=== PATIENT | male | born 1955 | race Caucasian/White ===

== ENCOUNTER 2020-03-05 10:23 | Outpatient (CLI) | payer BC, SELFPAY ==
--- NOTE | ~2020-03-05 | XR_ITS ---
XR chest 2V 03/05/2020 10:45 Indication: Dyspnea Procedure: PA and lateral views of the chest Comparison: Comparison to multiple prior studies sequentially, with oldest reviewed study dated 03/13. Findings: Heart size normal. No focal air space disease, pulmonary edema, pleural effusion or suspect ed pneumothorax. No acute osseous abnormality. Impression: 1: No acute cardiopulmonary disease. Reviewed, dictated and finalized at location A. F COMPRESSOR STATION ENGINEER Impression: 1: No acute cardiopulmonary disease.
--- NOTE | 2020-03-05 10:25 | ECG_ITS ---
Measurements Intervals [place] Rate: 59 P: 15 TX: 174 QRS: -7 QRSD: 114 T: 12 QT: 413 QTc: 410 Interpretive Statements SINUS BRADYCARDIA POSSIBLE LEFT VENTRICULAR HYPERTROPHY MINIMAL Q WAVES- HIGH LATERAL LEADS BASELINE ARTIFACT- I, II, III, AVR, AVL, AVF BORDERLINE ECG Electronically Signed On 03-05-2020 10:46:32 ENGINEERING LECTURER by Adam Villalobos D.O.
== END 2020-03-05 10:24 | disposition home or self-care (01) ==
LOC: ANHSURGERY 10:25
PROVIDERS: PCP Family Medicine Adolescent Medicine; Visit Provider Orthopaedic Surgery
DX: Z01.818 Encounter for other preprocedural examination (principal); S83.209A Unspecified tear of unspecified meniscus, current injury, unspecified knee, initial encounter; I48.91 Unspecified atrial fibrillation
CPT/HCPCS: 71046; 93005

== ENCOUNTER 2020-03-09 01:48 | Outpatient (CLI) | payer BC, SELFPAY ==
[2020-03-09 18:31] LABS: SARS-CoV-2 RNA PCR Negative
== END 2020-03-09 01:49 | disposition home or self-care (01) ==
LOC: ANHCOVIDDT 01:48
PROVIDERS: PCP Family Medicine Adolescent Medicine; Visit Provider Orthopaedic Surgery
DX: Z01.812 Encounter for preprocedural laboratory examination (principal); Z20.828 Contact with and (suspected) exposure to other viral communicable diseases
CPT/HCPCS: 87635; C9803; U0003

== ENCOUNTER 2020-03-13 01:46 | Day surgery (SDC) | payer BC, SELFPAY ==
[2020-02-28 14:13] VITALS: BMI 29.1
--- NOTE | 2020-03-11 13:57 | PM.IMHP ---
H&P: HPI History of Present Illness Date/Time: 03/11/20 13:57 <SAKINA Sharma - Last Filed: 03/11/20 14:05> Chief complaint: Right Knee Medial Meniscus Tear <SAKINA Sharma - Last Filed: 03/11/20 14:05> Narrative: Mitchel De Jr. is a 64 year old male Patient of Dr. Forrest who presents today for arthroscopy his right knee with partial medial meniscectomy. He injured his knee in October of this year when he slipped getting out of his boat. He twisted his foot as well as his knee. He started having pain medial aspect the knee at that time. Dealt with it for about 6 weeks until his symptoms became worse. He was initially seen in the office on 11/22/2019. After initial evaluation he was sent for an MRI scan the knee. MRI scan did show significant chondromalacia medial facet the patella. And moderate chondromalacia in medial femoral condyle. It also showed a complex tear of the medial meniscus with evidence of a flap component. He was initially treated with cortisone injection on 12/05 which did not give him much relief. He is unable take anti-inflammatories because he is on Xarelto long-term for his AFib. Patient has not improved with the symptoms in the medial aspect of his knee. His MRI scan does show a flap tear of the medial meniscus. Surgical option of arthroscopy was discussed with him. He would like proceed. <SAKINA Sharma - Last Filed: 03/11/20 14:05> Review of Systems Review of Systems: All systems reviewed & are unremarkable except as noted in HPI and below <SAKINA Sharma - Last Filed: 03/11/20 14:05> [facility] Past Medical History Medical History: Medical History (Updated 03/13/20 @ 06:39 by Jose Carlos Kan MD) Chronic a-fib Hyperlipidemia Obesity <SAKINA Sharma - Last Filed: 03/11/20 14:05> Social History Social History: Social History Smoking status: Never smoker Drinks per week: 3 Substance use: never Substance use type: does not use Living arrangements: with family Spiritual care concerns: No <SAKINA Sharma - Last Filed: 03/11/20 14:05> Meds Home Medications and Allergies Home medications: Home Medications Medication Instructions Recorded Confirmed Type atorvastatin 40 mg PO HS 02/28/20 03/13/20 History flecainide 100 mg PO BID 02/28/20 03/13/20 History rivaroxaban [Xarelto] 20 mg PO HS 02/28/20 03/13/20 History <SAKINA Sharma - Last Filed: 03/11/20 14:05> Allergies/Adverse reactions: Allergies Allergy/AdvReac Type Severity Reaction Status Date / Time No Known Allergies Allergy Unverified 03/13/20 06:47 <SAKINA Sharma Last Filed: 03/11/20 14:05> Exam Narrative: Exam Narrative: 64-year-old male alert pleasant no distress. He is 5 ft 7 197 lb. He walks without a limp. Range motion of the right knee is from 0-135 degrees. He has medial joint line soreness at full flexion. He has moderately severe posterior medial joint line tenderness. Normal varus valgus stability. Hip range of motion is full without discomfort. [id number] posterior medial joint line tenderness. Mild effusion. Normal quad strength. 2+ dorsalis pedis. Skin is all normal. Moderately severe pain with patellofemoral grind. <SAKINA Sharma - Last Filed: 03/11/20 14:05> Resp: Auscultation: clear to auscultation bilaterally <SAKINA Sharma - Last Filed: 03/11/20 14:05> Cardio: Rate: regular rate <SAKINA Sharma - Last Filed: 03/11/20 14:05> Rhythm: abnormal rhythm <SAKINA Sharma Last Filed: 03/11/20 14:05> Assessment and Plan Additional Plan Patient has a medial meniscus tear with a flap component. He continues have symptoms in the knee for the last 4 months. Is not improved nonsurgical treatment. Arthroscopic partial medial meniscectomy was discussed with the patient and he feels that he is having significant symptoms and wo
[2020-03-13] VITALS (7 sets, daily range): BP systolic 121–134; BP diastolic 73–98; PULSE 47–73; RESP 12–20; TEMP 35.8–36.5; O2SAT 97–100
[2020-03-13] MEDS: LACTATED RINGERS 1,000 ML 30 ML IV CONT ×2 (06:28→08:42)
[2020-03-13] MEDS: KETOROLAC 15 MG/ML VIAL (*BKC) IV PUSH (06:37)
[2020-03-13] MEDS: ACETAMINOPHEN 500 MG TABLET 1000 MG PO (06:37)
--- NOTE | 2020-03-13 06:38 | WPDANESEPPF ---
Anes - Initial Pre Proc Eval Procedure: Operation Date: 03/13/20 07:30 Proposed Procedures p Right Knee Arthroscopy, Partial Medial Meniscectomy, Proceed As Indicated - Atul Campos MD Date/Time: 03/13/20 06:38 Surgeon: Atul Campos MD Pre Op Diagnosis: Right Knee Medial Meniscus Tear Patient Data Age: 64 Gender: M Height: 5 ft 8 in Weight: 87 kg Allergies Allergy/AdvReac Type Severity Reaction Status Date / Time No Known Allergies Allergy Unverified 03/13/20 06:19 Home Medications Medication Instructions Recorded Confirmed Type atorvastatin 40 mg PO HS 02/28/20 03/13/20 History flecainide 100 mg PO BID 02/28/20 03/13/20 History rivaroxaban [Xarelto] 20 mg PO HS 02/28/20 03/13/20 History Patient hx anesthesia problems: none Family hx anesthesia problems: none PMFSH Past Medical History Medical History (Updated 03/13/20 @ 06:39 by Jose Carlos Kan MD) Chronic a-fib Hyperlipidemia Obesity Social History Social History Smoking status: Never smoker Drinks per week: 3 Substance use: never Substance use type: does not use Living arrangements: with family Spiritual care concerns: No Anes - Eval Final PreProcedure Day of Procedure 03/13/20 06:38 Patient weight: obese Heart: regular rate and rhythm Lungs: clear to auscultation Airway: Mallampati scale class II Neurological: alert and oriented Last oral intake: >/= 8 hours ASA classification: III Emergent: no Anesthetic plan: proceed Anesthesia type and monitoring: general LMA and standard monitoring Informed Consent: The patient's anesthetic plan and its attendant risks and benefits were discussed with the patient/family/POA. Questions were solicited and answers provided to the satisfaction of the patient/family/POA.
--- NOTE | 2020-03-13 07:22 | WPDHPUPDATE1 ---
History and Physical Update Update Date/Time: 03/13/20 07:22 History and Physical has been reviewed, including an updated exam of the patient. There are NO changes in the patient's condition. Risks, benefits, and alternatives have been discussed and questions answered. Patient agrees to proceed with procedure.
[2020-03-13] MEDS: ceFAZolin 2 GM/D5W 50 ML 2 GM/50 ML BAG IVPB (07:31)
[2020-03-13] MEDS: LIDO 1%/EPINEPHRINE 1:100,000 20 ML VIAL INFILTRATE (08:20)
--- NOTE | 2020-03-13 08:40 | P.OP_ITS ---
Procedure Note - Detailed Date of procedure: 03/13/20 Pre-op diagnosis: Right Knee Medial Meniscus Tear Degenerative medial meniscus tear right knee Procedure performed: Arthroscopic partial medial meniscectomy right knee Description of procedure: Patient brought to the operating room and general anesthesia was administered. He received 2 g of Ancef preoperatively the right knee prepped draped usual fashion. Standard arthroscopic portals were placed. The medial compartment showed moderate thickness cartilage loss involving the lateral 1/2 of the medial femoral condyle weight-bearing portion. There was a radial tear of the posterior horn of medial meniscus immediately visible fairly close to the root and there was a flap component on probing based at the junction of posterior horn and midbody. Chondrocalcinosis crystals were seen the meniscus tissue. Using alternating punch and motorized shaver the flap of medial meniscus was removed leaving a rim of posterior horn rim intact. This left a relative prominence at the posterior aspect the midbody and we introduced the arthroscope in the anterior medial portal and with the shaver in the anterolateral portal, the midbody was transitioned appropriately. The meniscus was then probed and there was an intact remaining superior leaflet running to the radial component at the root. ACL looked normal. Lateral compartment showed fraying of the inner margin of the lateral meniscus which was minimally debrided mainly for visualization inspection and the meniscus was otherwise intact and lateral compartment articular cartilage was intact. There were specks of presumed chondrocalcinosis crystals covering the lateral meniscus as well and the patellofemoral joint showed moderate chondromalacia central trochlear groove and areas of full-thickness cartilage loss on the patella with areas of cartilage remaining on the patella. This completed the procedure. The arthroscope go portals were closed with 5 0 nylon suture in a soft bulky dressing applied the patient transferred postop recovery room stable condition. Anesthesia: GLMA Surgeon: Atul Campos MD Client Relations Representative: ck Estimated blood loss (mL): 1 Drains: No Packing: No Pathology: none sent Complications: No immediate complications Condition: stable Disposition: PACU Findings: Patient was in sinus rhythm during the operation.
--- NOTE | 2020-04-09 13:43 | PM.PROC ---
Procedure Note - Detailed Date of procedure: 03/13/20 Pre-op diagnosis: Right Knee Medial Meniscus Tear Post-op diagnosis: same Surgeon: Atul Campos MD
== END 2020-03-13 10:23 | disposition home or self-care (01) ==
PROVIDERS: PCP Family Medicine Adolescent Medicine; Visit Provider Orthopaedic Surgery
PROC: (CPT 29870; principal; 2020-03-13 07:30)
DX: S83.231A Complex tear of medial meniscus, current injury, right knee, initial encounter (principal); X50.0XXA Overexertion from strenuous movement or load, initial encounter; M11.261 Other chondrocalcinosis, right knee; M94.261 Chondromalacia, right knee; I48.20 Chronic atrial fibrillation, unspecified; E78.5 Hyperlipidemia, unspecified; Z79.01 Long term (current) use of anticoagulants; E66.9 Obesity, unspecified; Z68.29 Body mass index [BMI] 29.0-29.9, adult
CPT/HCPCS: 29881; A9270; J0690; J1100; J1885; J2250; J2405; J2704; J3010; J7120

== ENCOUNTER 2021-07-02 08:24 | Outpatient (CLI) | payer BC, SELFPAY | END 2021-07-02 08:25 | disposition home or self-care (01) | LOC: ANHSURGERY 08:27 | PROVIDERS: PCP Family Medicine Adolescent Medicine; Visit Provider Surgery | DX: Z01.812 Encounter for preprocedural laboratory examination (principal); K42.9 Umbilical hernia without obstruction or gangrene | CPT/HCPCS: 36415; 86850; 86900; 86901 ==

== ENCOUNTER 2021-07-08 00:21 | Day surgery (SDC) | payer BC, SELFPAY ==
[2021-06-30 09:54] VITALS: BMI 29.9
--- NOTE | 2021-06-30 10:06 | PC.NURSE ---
Report to the Outpatient Waiting Room, entrance under the green pavilion located off [facility], at time 7:00 on date 07/08/21. OR Time: 9:00. - You and your visitor will be asked a series of questions to screen for COVID 19 for your protection. - A mask is required within the hospital. One visitor will be allowed to accompany the patient into the hospital. Patients visitor will be instructed to remain with patient at all times or leave the building. We will allow the visitor to come back to the postoperative area when patient is ready. Preoperative COVID Testing Requirements: No COVID Test needed if: (proof is required; if not received patient will have Rapid Test prior to entry) - Patient has received COVID Vaccine at least 14 days prior to procedure date or - Patient has positive COVID test result within last 90 days of surgery date. COVID Test needed if above criteria is not met Patients may have clear liquids (water, carbonated beverages, clear teas, apple juice) until 3 hours prior to surgery (6:00) with a maximum of 20 ounces. - No food from midnight until time of surgery Take the following medications with a SIP of water the morning of surgery: FLECAINIDE Medications to discontinue per physician: VITAMINS/SUPPLEMENTS, XARELTO Date to take last dose: 07/04/21 Please no make-up, nail vietnamese, hairspray, perfume, deodorant, or body powder the day of surgery. No jewelry (including any body piercings) or valuables the day of surgery, leave them at home. Please take a shower or bath the night before, or the morning of, surgery with an antibacterial soap. Wear comfortable, loose fitting clothing. HIBICLENS SHOWER - Jewelry must be removed prior to entering the operating room. Rings and piercings that are not removed may be cut off. - The hospital will not accept responsibility for valuables. - Please leave all valuables, including medications, at home the day of surgery. If you are going home after surgery, a licensed driver guard must drive you home. - NO public transportation without another adult. - We recommend that an adult stay with you for 24 hours following discharge. - We also recommend that you do not drive, make important decision, drink alcoholic beverages, or take any drugs that were not prescribed by your health care provider for at least 24 hours after your discharge time. Follow any additional instructions given to you from your surgeon. Telephone instructions given to FELIX REAL and asked if any additional questions and then verbalized understanding. Patient advised to call surgeon office or pre surgery nurse liaison [phone] if any additional questions.
--- NOTE | 2021-07-07 15:21 | P.PNAN_ITS ---
Anes - Initial Pre Proc Eval Procedure: Operation Date: 07/08/21 09:00 Proposed Procedures p Laparoscopic Umbilical Hernia Repair with Mesh, Davinci Assisted - Savage Austin DO Date/Time: 07/07/21 15:21 Surgeon: Savage Austin DO Pre Op Diagnosis: umbilical hernia Patient Data Age: 66 Gender: M Height: 1.73 m Weight: 89.36 kg Allergies Allergy/AdvReac Type Severity Reaction Status Date / Time No Known Allergies Allergy Verified 07/08/21 07:43 Home Medications Medication Instructions Recorded Confirmed Type Xarelto 20 mg PO HS 02/28/20 07/08/21 History atorvastatin 40 mg PO HS 02/28/20 07/08/21 History flecainide 100 mg PO BID 02/28/20 07/08/21 History multivitamin with minerals [Men's 1 tablet PO DAILY 06/30/21 07/08/21 History One Daily] Patient hx anesthesia problems: none Family hx anesthesia problems: none Results Review: All pre-operative results and documents have been reviewed as part of the pre-operative evaluation. [facility] Past Medical History Medical History (Updated 07/07/21 @ 15:22 by Cuba Braun MD) BMI 32.0-32.9,adult Chronic a-fib Chronic atrial fibrillation Hyperlipidemia Obesity Surgical History Surgical History H/O Achilles tendon repair right Achilles tendon repair History of arthroscopic knee surgery right 03/31 Dr. Campos History of shoulder surgery 2009, Right rotator cuff & acromioplasty History of total knee arthroplasty left 2012 Normal colonoscopy 11/25 Repeat 12/05 Family History Family History Mother , age 58 Liver cancer Father Hypertension Social History Social History Smoking status: Never smoker Second hand tobacco smoke exposure: No Alcohol intake: current Drinks per week: 10 Substance use: never Substance use type: does not use Living arrangements: with family Gender identity (if verbalized by the patient): Male Sexual Orientation (if Verbalized by the Patient): Straight or Heterosexual Spiritual care concerns: No Agree to blood products: Yes Anes - Eval Final PreProcedure Day of Procedure 07/07/21 15:21 Patient weight: obese Heart: regular rate and rhythm Lungs: clear to auscultation and normal air movement Airway: Mallampati scale class II Neurological: alert and oriented Last oral intake: >/= 8 hours ASA classification: III Emergent: no Anesthetic plan: proceed Anesthesia type and monitoring: general ETT Results Review: All pre-operative results and documents have been reviewed as part of the pre-operative evaluation. Informed Consent: The patient's anesthetic plan and its attendant risks and benefits were discussed with the patient/family/POA. Questions were solicited and answers provided to the satisfaction of the patient/family/POA.
[2021-07-08] VITALS (8 sets, daily range): BP systolic 126–146; BP diastolic 65–85; PULSE 56–76; RESP 8–18; TEMP 36.4–36.5; O2SAT 93–97
[2021-07-08] MEDS: ACETAMINOPHEN 500 MG TABLET 1000 MG PO (07:47)
[2021-07-08] MEDS: LACTATED RINGERS 1,000 ML 30 ML IV CONT (08:00)
[2021-07-08] MEDS: KETOROLAC 15 MG/ML VIAL (*BKC) IV PUSH (08:01)
--- NOTE | 2021-07-08 09:28 | WPDHPUPDATE1 ---
History and Physical Update Update Date/Time: 07/08/21 09:28 History and Physical has been reviewed, including an updated exam of the patient. There are NO changes in the patient's condition. Risks, benefits, and alternatives have been discussed and questions answered. Patient agrees to proceed with procedure.
--- NOTE | 2021-07-08 09:28 | PM.IMHP ---
H&P: HPI History of Present Illness Date/Time: 07/08/21 09:28 Chief Complaint: Umbilical hernia Narrative: This is a 66-year-old man who presents for umbilical hernia repair. He denies any changes since last seen in the office. Review of Systems Review of Systems: All systems reviewed & are unremarkable except as noted in HPI and below Constitutional: Constitutional: Denies chills, Denies fever(s), Denies headache(s) and Denies weight loss Eyes: Eyes: Denies change in vision ENT: Denies dizziness, Denies headache(s), Denies neck mass and Denies throat swelling Cardiovascular: Cardiovascular: Denies chest pain, Denies lightheadedness and Denies dyspnea Respiratory: Respiratory: Denies cough, Denies dyspnea and Denies wheezing Gastrointestinal: Gastrointestinal: Denies abdominal pain, Denies change in bowel habits, Denies nausea and Denies vomiting Genitourinary: Genitourinary: Denies hematuria and Denies dysuria Musculoskeletal: Musculoskeletal: Reports as per HPI Integumentary/Breasts: Skin/Breast: Reports as per HPI Neurologic: Denies dizziness and Denies headache(s) Allergic/Immunologic: Allergic/Immunologic: Denies throat swelling and Denies wheezing PMFSH Past Medical History Medical History (Updated 07/07/21 @ 15:22 by Cuba Braun MD) BMI 32.0-32.9,adult Chronic a-fib Chronic atrial fibrillation Hyperlipidemia Obesity Surgical History Surgical History H/O Achilles tendon repair right Achilles tendon repair History of arthroscopic knee surgery right 03/31 Dr. Campos History of shoulder surgery 2009, Right rotator cuff & acromioplasty History of total knee arthroplasty left 2012 Normal colonoscopy 11/25 Repeat 12/05 Family History Family History Mother , age 58 Liver cancer Father Hypertension Social History Social History Smoking status: Never smoker Second hand tobacco smoke exposure: No Alcohol intake: current Drinks per week: 10 Substance use: never Substance use type: does not use Living arrangements: with family Gender identity (if verbalized by the patient): Male Sexual Orientation (if Verbalized by the Patient): Straight or Heterosexual Spiritual care concerns: No Agree to blood products: Yes Meds Home Medications and Allergies Home Medications Medication Instructions Recorded Confirmed Type Xarelto 20 mg PO HS 02/28/20 07/08/21 History atorvastatin 40 mg PO HS 02/28/20 07/08/21 History flecainide 100 mg PO BID 02/28/20 07/08/21 History multivitamin with minerals [Men's 1 tablet PO DAILY 06/30/21 07/08/21 History One Daily] Allergies Allergy/AdvReac Type Severity Reaction Status Date / Time No Known Allergies Allergy Verified 07/08/21 07:43 Vital Signs Vital Signs - 24 hr 07/08/21 07:30 Temperature 36.5 C Pulse Rate 76 Respiratory Rate 16 Blood Pressure 136/85 Pulse Oximetry 95 Exam Const: General: no acute distress and alert Orientation/consciousness: patient oriented x3 HENMT: Head: normocephalic and atraumatic Ears: hearing grossly normal bilaterally General nose exam: Normal nares present Mouth: Yes Normal oral and palatal mucosa present Eyes: Periorbital: periorbital findings normal Sclera: sclerae normal EOM: EOMs intact bilaterally Neck: Neck: normal visual inspection, no lymphadenopathy and trachea midline Chest: Chest palpation & inspection: normal inspection of the chest Resp: Effort & Inspection: normal respiratory effort Auscultation: clear to auscultation bilaterally Cardio: Jugular venous distension: no JVD Rate: regular rate Rhythm: regular rhythm Heart sounds: S1 normal heart sound present and S2 normal heart sound present Peripheral pulses: Peripheral pulses 2+ throughout GI: Inspection: norm
[2021-07-08] MEDS: ceFAZolin 2 GM/D5W 50 ML 2 GM/50 ML BAG IVPB (10:00)
--- NOTE | 2021-07-08 12:00 | W.PM.PROC2 ---
Procedure Note - Detailed Date of Procedure 07/08/21 Pre-op Diagnosis umbilical hernia Post-op Diagnosis Same Procedure Performed Laparoscopic Umbilical Hernia Repair with Mesh, da Jenna assisted Surgeon Savage Austin, Anesthesia General and Local (Exparel) Indications This is a 66-year-old man who noticed an umbilical bulge that has increased over the past year. This does cause some discomfort but he has no other complaints. He was found to have an umbilical hernia on physical exam. Discussions were made with the patient about treatment options and decision was made to proceed with robotic assisted laparoscopic umbilical hernia repair with mesh. Findings Laparoscopic umbilical hernia repair was performed. The patient was found to have a 2 cm umbilical hernia containing preperitoneal fat. A robotic transabdominal preperitoneal (rTAPP) approach was utilized. Once a wide enough preperitoneal pocket was created the fascia was closed using 0 Stratafix running suture. The Ventralight ST 15 cm x 10 cm mesh was then placed within the preperitoneal pocket and secured at the 4 corners using 3-0 Vicryl simple interrupted sutures. The peritoneal flap was then closed using 3 0 V lock running absorbable suture. No Specimens were sent for pathology. Description of Procedure Procedure as well as risks, benefits, and alternatives were discussed with the patient. Written consent was obtained and placed in chart prior to procedure. Patient was brought back to surgical suite. He was placed supine on operating table. Time-out was done to confirm patient and procedure. He was then intubated by the anesthesia department. A bump was placed under his left hip, and the bed was flexed slightly to extend the space between his costal margin and iliac crest. His abdomen was prepped and draped in sterile fashion using chlorhexidine prep. A 5 millimeter incision was made in the left upper quadrant, and a 5 millimeter Optiview trocar was advanced through the abdominal layers under direct visualization. Once inside the abdominal cavity, carbon dioxide insufflation was used to create a pneumoperitoneum. His abdomen was inspected. An 8 millimeter incision was made in the left lower quadrant, and an 8 millimeter robotic trocar was placed under direct visualization. Another 8 millimeter incision was made in the left lateral abdomen, and an 8 millimeter robotic trocar was placed under direct visualization. Exparel was infiltrated along the lateral abdominal cohen to perform a transversus abdominis plane block bilaterally. The 5 millimeter port was removed, the incision was extended to 12 millimeters, and a 12 millimeter air seal port was placed under direct visualization. A Venu-Johns cone was also used to place an 0-Vicryl simple interrupted suture at this trocar site. The robotic arms were brought up to the patient's bedside and secured to the ports. The camera and instruments were inserted, and I then moved over to the robotic console and took control of the camera and instruments. After careful thorough inspection of the abdominal cavity, I began my dissection at the hernia. A preperitoneal pocket was started along the left lateral abdomen using scissors with electrocautery. Preperitoneal plane was dissected from the left lateral side medially to the midline and then this was continued to the right lateral side. The hernia sac was reduced along with the preperitoneal fat contained within the hernia defect. I then measured the hernia size. The hernia measured 2 cm. The fascia was closed using an 0-Stratafix running suture in a vertical fashion. A 15 cm x [address] mesh was then placed within the preperitoneal pocket. This was oriented vertically with the mesh centered on the hernia defect. The mesh was then secured to the abdominal wall using 3-0 Vicryl simple interrupted sutures. The repair was inspected, and one final inspection was made around the ab
[2021-07-08] MEDS: oxyCODONE HCL (*CRX) 5 MG TAB IR PO (13:06)
== END 2021-07-08 13:50 | disposition home or self-care (01) ==
PROVIDERS: PCP Family Medicine Adolescent Medicine; Visit Provider Surgery
PROC: (CPT 49652; principal; 2021-07-08 09:00)
DX: K42.9 Umbilical hernia without obstruction or gangrene (principal); I48.91 Unspecified atrial fibrillation; R00.1 Bradycardia, unspecified; E78.5 Hyperlipidemia, unspecified; Z79.01 Long term (current) use of anticoagulants; E66.9 Obesity, unspecified; Z68.30 Body mass index [BMI] 30.0-30.9, adult
CPT/HCPCS: 49652; S2900; 36415; 86850; 86900; 86901; A9270; C1781; C9290; J0690; J1100; J1885; J2405; J2704; J2710; J3010; J7120

== ENCOUNTER 2021-11-15 23:27 | Emergency (ER) | payer BC, SELFPAY ==
--- NOTE | ~2021-11-15 | CT_ITS ---
EXAMINATION: CT brain wo con DATE: 11/16/2021 00:45 INDICATION: Headache. Patient on blood thinner. Dizziness for one week. Left arm numbness. TECHNIQUE: Computed tomography (CT) of the head was performed without intravenous contrast. The mA wa s adjusted according to patient size. Iterative reconstruction technique was employed. Exam dose: 68 1.00 mGy-cm total exam DLP. COMPARISON: 06/19/2005 CT brain FINDINGS: No intracranial mass lesion or hemorrhage or cerebrovascular accident. No midline shift or mass effect effect. Normal ventricular size. No subdural or epidural hematoma. Bilateral carotid siphon internal carotid artery calcifications. No fracture or bone destruction of the cranial vault. Mildly comparison thickening is noted in the posterior left maxillary sinus. Included paranasal sinus es and mastoid air cells are otherwise unremarkable. IMPRESSION: Cerebral atherosclerosis No acute intracranial finding or skull fracture Reviewed, dictated and finalized at [facility]. Reviewed, dictated and finalized at location A.
--- NOTE | 2021-11-15 23:32 | ECG_ITS ---
Measurements Intervals [place] Rate: 52 P: 60 UT: 205 QRS: -8 QRSD: 119 T: 14 QT: 457 QTc: 428 Interpretive Statements SINUS BRADYCARDIA POSSIBLE LEFT VENTRICULAR HYPERTROPHY [VOLTAGE CRITERIA PLUS LAE OR QRS WIDENING] COMPARED TO ECG 03/05/2020 11:00:06 NO SIGNIFICANT CHANGES Electronically Signed On 11-16-2021 8:24:34 CDT by Kentrell Banks M.D.
[2021-11-15 23:35] VITALS: BP 154/87; PULSE 61; RESP 16; TEMP 36.3; O2SAT 100
[2021-11-16] VITALS (19 sets, daily range): BP systolic 141–162; BP diastolic 95–100; PULSE 54–64; RESP 12–17; TEMP 36.7; O2SAT 94–98
--- NOTE | 2021-11-16 00:31 | ED.GENADULT ---
HPI - General Adult General Chief complaint: Dizziness Stated complaint: dizzy spells, headache Time Seen by Provider: 11/16/21 00:10 History of Present Illness HPI narrative: This is a 66-year-old male with a history of AFib on Xarelto presenting to the ED with intermittent dizziness x1 and half weeks. Patient says he is having episodic periods of vertigo that are triggered by head movements. They completely resolve in between episodes. The episodes are vertiginous and are associated with some nausea but no vomiting. The patient denies diplopia, dysarthria, dysphagia, dystaxia. in the triage note it was noted that he was having tingling in his left hand although his although this has been going on for years and is not associated with his new vertigo. The patient is also complaining of intermittent headaches that have been going on for several weeks. They have responded to Tylenol. The patient denies any recent falls or head trauma. Related Data Home Medications Medication Instructions Recorded Confirmed atorvastatin 40 mg tablet 40 mg PO HS 02/28/20 08/22/21 flecainide 100 mg tablet 100 mg PO BID 02/28/20 08/22/21 rivaroxaban 20 mg tablet (Xarelto) 20 mg PO HS 02/28/20 08/22/21 multivitamin with minerals (Men's 1 tablet PO DAILY 06/30/21 08/22/21 One Daily tablet) Allergies Allergy/AdvReac Type Severity Reaction Status Date / Time No Known Allergies Allergy Verified 08/21/21 13:10 Review of Systems Review of Systems: CONSTITUTIONAL: Denies night sweats. EYES: No eye pain ENT: Denies rhinorrhea CARDIOVASCULAR: Denies palpitations RESPIRATORY: Denies hemoptysis GASTROINTESTINAL: Denies hematemesis GENITOURINARY: Denies hematuria. SKIN: Denies rash MUSCULOSKELETAL: Denies myalgia. NEUROLOGIC: Denies weakness. PSYCHIATRIC: Denies delusions PMF Past Medical History Medical History BMI 32.0-32.9,adult Chronic a-fib Chronic atrial fibrillation Hyperlipidemia Obesity Surgical History Surgical History H/O Achilles tendon repair right Achilles tendon repair History of arthroscopic knee surgery right 03/31 Dr. Campos History of shoulder surgery 2009, Right rotator cuff & acromioplasty History of total knee arthroplasty left 2012 History of umbilical hernia repair w mesh davinci assisted 07/08/21 Normal colonoscopy 11/25 Repeat 12/05 Family History Family History Mother , age 58 Liver cancer Father Hypertension Social History Social History Smoking status: Never smoker Second hand tobacco smoke exposure: No Alcohol intake: current Drinks per week: 10 Substance use: never Substance use type: does not use Gender identity (if verbalized by the patient): Male Sexual Orientation (if Verbalized by the Patient): Straight or Heterosexual Spiritual care concerns: No Agree to blood products: Yes Exam Narrative: APPEARANCE: No apparent distress. Head atraumatic. EYES: PERRLA/EOMI, NOSE: Normal no drainage NECK: Supple, Trachea midline RESPIRATORY: CTAB, No increased work of breathing. CARDIOVASCULAR: S1S2 appreciated ABDOMINAL: Soft, nontender, nondistended, MUSCULOSKELETAl: No obvious deformities NEURO: Alert. Cranial nerves 2-12 grossly intact. Sensation light touch, motor function cerebellar function intact for 4 extremities. Gait exam was normal. [place] hallpike did not elicit nystagmus on the downward motion and did elicit vertigo on the upward motion. Patient has no nystagmus at rest. Test of skew is negative. Head impulse was indeterminate. SKIN:: Warm, dry. Normal color PSYCHIATRIC: Normal affect Course Vital Signs Vital signs: Vital Signs Temperature 97.4 F L 11/15/21 23:35 Pulse Rate 61 11/15/21 23:35 Respirator
[2021-11-16] MEDS: MECLIZINE HCL 25 MG TABLET PO (00:52)
== END 2021-11-16 03:27 | disposition home or self-care (01) ==
PROVIDERS: Emergency Provider Emergency Medicine; PCP Family Medicine Adolescent Medicine
DX: R42 Dizziness and giddiness (principal); I48.20 Chronic atrial fibrillation, unspecified; E78.5 Hyperlipidemia, unspecified; E66.9 Obesity, unspecified; Z68.29 Body mass index [BMI] 29.0-29.9, adult; Z79.01 Long term (current) use of anticoagulants; Z96.652 Presence of left artificial knee joint
CPT/HCPCS: 70450; 93005; 99284; A9270

== ENCOUNTER → 2022-06-16 14:10 | Outpatient (CLI) | payer MEDICARE, SELFPAY ==
--- NOTE | ~2022-06-16 | XR_ITS ---
XR chest 2V DATE: 06/16/2022 14:20 INDICATION: Chronic atrial fibrillation. Right scapular and thoracic spine pain TECHNIQUE: 2 views COMPARISON: 03/05/2020 PA and lateral chest FINDINGS: Normal heart size. Is aortic unfolding. No hilar or mediastinal enlargement. No pulmonary infiltrate or consolidation, pleural effusion or pulmonary vascular congestion or pneumo thorax. Degenerative spurring of the thoracic spine. IMPRESSION: No active cardiopulmonary disease or significant change since 03/05/2020 Reviewed, dictated and finalized at location L. LPHURIZER OPERATOR
== END ==
PROVIDERS: PCP Family Medicine Adolescent Medicine; Visit Provider Family Medicine Adolescent Medicine
DX: I48.20 Chronic atrial fibrillation, unspecified (principal); M54.6 Pain in thoracic spine; M25.511 Pain in right shoulder
CPT/HCPCS: 71046

== ENCOUNTER → 2023-06-07 13:17 | Outpatient (CLI) | payer MEDICARE, SELFPAY ==
--- NOTE | ~2023-06-07 | XR_ITS ---
EXAMINATION: XR chest 2V Exam Date/Time: 06/07/2023 13:28 PROMOTIONS DIRECTOR HISTORY: persistent cough Comparison: 06/16/2022; CT thorax 11/23/2005. RESULT: Lines, tubes, and devices: None. Lungs and pleura: Clear. Cardiomediastinal silhouette: Stable. Other: No acute osseous or upper abdominal finding. IMPRESSION: No acute cardiopulmonary process. Reviewed, dictated and finalized at location K. OTIONS DIRECTOR
== END ==
PROVIDERS: PCP Family Medicine Adolescent Medicine; Visit Provider Family Medicine Adolescent Medicine
DX: R05.9 Cough, unspecified (principal)
CPT/HCPCS: 71046

== ENCOUNTER 2023-11-02 01:36 | Day surgery (SDC) | payer MEDICARE, SELFPAY ==
[2023-10-20 11:27] VITALS: BMI 30.2
--- NOTE | 2023-10-25 09:41 | SUR.PREOP ---
Clearance to stop xarelto refaxed to Dr. Reyes's office.
--- NOTE | 2023-10-25 13:00 | SUR.PREOP ---
Spoke with patient regarding medication Xarelto. Pt. verbalizes understanding that the last dose of Xarelto is to be taken on 10/30/23 and the Endoscopist will instruct them when to restart after the procedure.
[2023-11-02 11:00] VITALS: BP 135/86; PULSE 62; RESP 18; TEMP 36.2; O2SAT 100; BMI 28.9
[2023-11-02] MEDS: LACTATED RINGERS 1,000 ML 150 ML IV CONT (11:26)
--- NOTE | 2023-11-02 11:58 | WPDANESEPPF ---
Anes - Initial Pre Proc Eval Procedure: Operation Date: 11/02/23 12:30 Proposed Procedures p Colonoscopy - Cabrera Prince MD s [facility] Hemorrhoid Treatment - Cabrera Prince MD Date/Time: 11/02/23 11:58 Surgeon: Cabrera Prince MD Pre Op Diagnosis: fecal smearing, full incontinence of feces, hemorr Patient Data Age: 68 Gender: M Height: 1.73 m Weight: 86.4 kg Last Vital Signs Temp 36.2 C L 11/02/23 11:00 Pulse 62 11/02/23 11:00 Resp 18 11/02/23 11:00 BP 135/86 11/02/23 11:00 Pulse Ox 100 11/02/23 11:00 O2 Del Method Room Air 11/02/23 11:00 Allergies Allergy/AdvReac Type Severity Reaction Status Date / Time No Known Allergies Allergy Verified 11/02/23 11:12 Home Medications Medication Instructions Recorded Confirmed Type atorvastatin 40 mg tablet 40 mg PO HS 02/28/20 11/02/23 History flecainide 100 mg tablet 100 mg PO BID 02/28/20 11/02/23 History rivaroxaban 20 mg tablet (Xarelto) 20 mg PO HS 02/28/20 11/02/23 History multivitamin with minerals (Men's 1 tablet PO DAILY 06/30/21 11/02/23 History One Daily tablet) acetaminophen 325 mg capsule 325 mg PO Q6H PRN Pain 06/16/22 11/02/23 History (Tylenol) Patient hx anesthesia problems: none Family hx anesthesia problems: none Results Review: All pre-operative results and documents have been reviewed as part of the pre-operative evaluation. [facility] Past Medical History Medical History (Updated 11/02/23 @ 11:58 by Cher Polanco CRNA) Chronic a-fib Hyperlipidemia Obesity Pulmonary regurgitation Umbilical hernia Surgical History Surgical History H/O Achilles tendon repair right Achilles tendon repair History of arthroscopic knee surgery right 03/31 Dr. Campos Left 2011 History of shoulder surgery (2009) 2010, Right rotator cuff & acromioplasty History of total knee arthroplasty (2012) left 2013 History of umbilical hernia repair w mesh davinci assisted 07/08/21 Family History Family History Mother , age 58 Liver cancer Father Hypertension Social History Social History Smoking status: Never smoker Second hand tobacco smoke exposure: No Alcohol intake: current Drinks per week: 12 Substance use: never Substance use type: does not use Living arrangements: with family Occupation/Education: retired Gender identity (if verbalized by the patient): Male Sexual Orientation (if Verbalized by the Patient): Straight or Heterosexual Spiritual care concerns: No Agree to blood products: Yes Anes - Eval Final PreProcedure Day of Procedure 11/02/23 11:58 Patient weight: overweight Heart: regular rate and rhythm Lungs: clear to auscultation Neurological: alert and oriented Last oral intake: >/= 8 hours ASA classification: III Emergent: no Anesthetic plan: proceed Anesthesia type and monitoring: general and standard monitoring Results Review: All pre-operative results and documents have been reviewed as part of the pre-operative evaluation. Informed Consent: The patient's anesthetic plan and its attendant risks and benefits were discussed with the patient/family/POA. Questions were solicited and answers provided to the satisfaction of the patient/family/POA.
--- NOTE | 2023-11-02 12:25 | PM.HPGS ---
History of Present Illness History of Present Illness Consent: Risks, benefits, and alternatives have been discussed and questions answered. Patient agrees to proceed with procedure. Chief complaint: fecal smearing, full incontinence of feces, hemorr Narrative: Mitchel De Jr. is a 68 year old male with intermittent incontinence and blood in stools, last colonoscopy 2019 Review of Systems Review of Systems: All systems reviewed & are unremarkable except as noted in HPI and below PMFSH Past Medical History Medical History (Updated 11/02/23 @ 11:58 by Cher Polanco CRNA) Chronic a-fib Hyperlipidemia Obesity Pulmonary regurgitation Umbilical hernia Surgical History Surgical History H/O Achilles tendon repair right Achilles tendon repair History of arthroscopic knee surgery right 03/31 Dr. Campos Left 2011 History of shoulder surgery (2009) 2009, Right rotator cuff & acromioplasty History of total knee arthroplasty (2013) left 2013 History of umbilical hernia repair w mesh davinci assisted 07/08/21 Family History Family History Mother , age 58 Liver cancer Father Hypertension Social History Social History Smoking status: Never smoker Second hand tobacco smoke exposure: No Alcohol intake: current Drinks per week: 12 Substance use: never Substance use type: does not use Living arrangements: with family Occupation/Education: retired Gender identity (if verbalized by the patient): Male Sexual Orientation (if Verbalized by the Patient): Straight or Heterosexual Spiritual care concerns: No Agree to blood products: Yes Meds Home Medications and Allergies Home Medications Medication Instructions Recorded Confirmed Type atorvastatin 40 mg tablet 40 mg PO HS 02/28/20 11/02/23 History flecainide 100 mg tablet 100 mg PO BID 02/28/20 11/02/23 History rivaroxaban 20 mg tablet (Xarelto) 20 mg PO HS 02/28/20 11/02/23 History multivitamin with minerals (Men's 1 tablet PO DAILY 06/30/21 11/02/23 History One Daily tablet) acetaminophen 325 mg capsule 325 mg PO Q6H PRN Pain 06/16/22 11/02/23 History (Tylenol) Allergies Allergy/AdvReac Type Severity Reaction Status Date / Time No Known Allergies Allergy Verified 11/02/23 11:12 Vital Signs Vital Signs - 24 hr 11/02/23 11:00 Temperature 97.2 F L Pulse Rate 62 Respiratory Rate 18 Blood Pressure 135/86 Pulse Oximetry 100 Oxygen Delivery Room Air Exam Const: General: comfortable and no acute distress HENMT: Face/Nose/Sinus: Normal nares present Eyes: General: appearance normal, both eyes and all related structures Neck: Neck: no JVD Resp: Auscultation: clear to auscultation bilaterally Cardio: Rate: regular rate Rhythm: regular rhythm GI: Inspection: non-distended GI Palp: Yes Soft to palpation Skin: General skin exam: normal color Neuro: General: gait normal Speech: normal speech Extrem: General: normal to inspection Psych: Mental Status: mental status grossly normal Assessment and Plan Assessment and plan (1) Bright red blood per rectum: Code(s): K62.5 - Hemorrhage of anus and rectum Status: Acute Assessment and Plan: colonoscopy if we find internal hemorrhoid then will treat with irc (2) Fecal smearing: Code(s): R15.1 - Fecal smearing Status: Acute
[2023-11-02 12:40] VITALS: BP 119/80; PULSE 64; RESP 21; O2SAT 93
--- NOTE | 2023-11-02 12:43 | W.PM.PROC2 ---
Procedure Note - Detailed Date of Procedure 11/02/23 Pre-op Diagnosis hemorrhois Post-op Diagnosis Same Procedure Performed IRC of internal hemorrhoids Surgeon Cabrera Prince MD Anesthesia MAC (also had colonoscopy) Findings small size internal hemorrhoids Description of Procedure using anoscope noted small size internal hemorrhoids, no bleeding, no fissure. Then advanced IRC probe and hemorrhoids treated for 1.5sec x6
[2023-11-02 12:50] VITALS: BP 123/79; PULSE 60; RESP 19; O2SAT 95
[2023-11-02 13:00] VITALS: BP 135/97; PULSE 60; RESP 20; O2SAT 100
== END 2023-11-02 13:14 | disposition home or self-care (01) ==
PROVIDERS: PCP Family Medicine Adolescent Medicine; Referring Provider Nurse Practitioner; Visit Provider Internal Medicine Gastroenterology
PROC: 0DJD8ZZ Inspection of Lower Intestinal Tract, Via Natural or Artificial Opening Endoscopic (ICD-10-PCS; CPT 45378; principal; 2023-11-02 12:30)
PROC: (CPT 46930; 2023-11-02 12:30)
DX: K57.30 Diverticulosis of large intestine without perforation or abscess without bleeding (principal); K64.8 Other hemorrhoids; I48.20 Chronic atrial fibrillation, unspecified; E78.5 Hyperlipidemia, unspecified
CPT/HCPCS: 45380; 46930; 88305; J2704; J7120

== ENCOUNTER 2024-12-26 08:00 | Outpatient (CLI) | payer MEDICARE, SELFPAY ==
--- OUTSIDE RECORDS SUMMARY | 2014-02-28 03:45 | XMS_ITS | Continuity of Care Document ---
Author Organization [facility] Address [address] [place] [id number] Phone Care Team Providers Care Long Lines Operator Name Role Phone Marley Hernandez DO Unavailable Unavailable Allergies, Adverse Reactions, Alerts Substance Reaction Status Criticality No Known Drug Allergies Active No I nformation Medications Medication Instructions Dosage Effective Dates (start - stop) Status Comments Langley 5 mg-325 mg tablet take 1 - 2 Tablet by oral route at bedtime as needed for pain - No Longer Active Procedures Procedure Date Supplemental Report Office/outpatient visit,felicity [facility] 2013 X-ray exam shoulder minimum 2 views Office/outpatient visit,misael w[facility] 2013 Advance Directives Directive Yes / No Effective Date File Name No Information Encounters Encounter Description Practice Location Reason(s) For Visit Diagnoses Date Provider Providers Copied on Encounter Office/outpat ient visit,felicity [facility], [address] [place] [address], [id number], tel:[phone] Are You a Human Shoulder painSprain of unspecified site of shoulder and upper armImpingement syndrome 4 David Roach. [address] [place] [address], [place], [place], [id number] , [place]. tel: [phone] [place] [facility], [address] [place] [address], [id number], tel:[phone] [facility] Shoulder painImpingement syndromeSprain of unspecified site of shoulder and upper arm 4 David Roach. [address] [facility], [address], [place], [place], [id number] , [place]. tel: [phone] Family History Family Member Type Diagnosis Age At Onset Father Problem (finding) No history of Stroke Payers Payer name Insurance type Covered alliance party ID Luz Maria leon(s) [employer] [id number] Social History Type Description Quantity Date Captured Comments Alcohol Use Details Unknown Caffeine Use Details Unknown Tobacco Use Status No Information Smoking Status No Information Sex Male Vital Signs Date / Time: Height Weight BMI Pulse Rate Blood Pressure Temperature Respiratory Rate Body Surface Area Head Circumference Head Circ. Percentile Wt./Gildardo. Percentile BMI percentile Pulse Ox Inhaled Ox 8:47 AM 68 /min 142/90 mm[Hg] 16 /min Chief Complaint And Reason For Visit No Information Reason For Referral Reason For Referral No Information Plan Of Treatment Date Type Action Status Referral Ordered: MRI Upper extr joint, w/o contrast RT shoulder Appointment date/timeframe: 02/28/2014 ordered Referral Ordered: X-ray exam shoulder minimum 2 views RT ordered History Of Present Illness Encounter Date Complaint History Of Prese nt Illness No Information Functional Status Date Functional Assessmen t No Information Instructions Date Instruction Additional Infor mation No Information Assessments Type Assessment Date assessment Shoulder pain assessment Sprain of unspecified site of sh oulder and upper arm assessment Impingement syndrome Patient Care Teams Name Effective Dates (start - stop) Status Members No Information
--- NOTE | ~2024-12-26 | US_ITS ---
Examination: US abdomen complete Clinical History: R10.9 - Unspecified abdominal pain . Comparison: None Technique: Complete abdominal sonography Findings: Liver: Normal size. Normal echotexture. No intrahepatic biliary ductal dilatation. Normal hepatopedal flow main portal vein. Common duct: Normal caliber, 4 mm. Gallbladder: No stones. No wall thickening. No pericholecystic fluid. Spleen: Unremarkable. Pancreas: Largely obscured by bowel gas. Kidneys: Hydronephrosis left kidney. 2.2 cm simple cyst left kidney. Small exophytic cyst right kidney. Urinary bladder: No abnormality identified. Left ureteral jet not seen. Aorta: No aneurysmal dilatation. Retrohepatic IVC: Unremarkable. IMPRESSION: 1. Hydronephrosis left kidney. Reviewed, dictated and finalized at location R.
--- OUTSIDE RECORDS SUMMARY | 2024-12-26 08:47 | XMS_ITS | Encounter Summary ---
Author Organization [facility] Address [address] [address] Care Team Providers Care Double Reamer Operator Name Role Phone Josse Fields MD Primary Care Prov ider Josse Fields MD Primary Care Prov ider Encounter Details Date Type Department Care Team (Late st Contact Info) Description 05/15/2016 Orders Only [facility] ProviderMelina MD [address] [place] [id number] Social History Tobacco Use Types Packs/Day Years Used Date Smoking Tobacco: Never Alcohol Use Standard Drinks/Week Comments Yes 0 (1 standard drink = 0.6 oz pur e alcohol) Sex and Gender Information Value Date Recorded Sex Assigned at Not on file Legal Sex Male 1:58 AM EMERGENCY MANAGER Gender Identity Not on file Sexual Orientation Not on file documented as of this encounter Plan of Treatment Not on file documented as of this encounter Procedures Procedure Name Priority Date/Time Associated Diagnosis Comments CARDIOLOGY REPORT 05/15/2016 documented in this encounter Results * CARDIOLOGY REPORT (05/15/2016) Anatomical Region Laterality Modality Other Narrative 05/15/2016 Ordered by an unspecified provider. Historical Provider [facility] CINDY SAUCEDA Final Result documented in this encounter Visit Diagnoses Not on filedocumented in this encounter Care Teams Double Reamer Operator Relationship Specialty Start Date End Date Josse Fields MD PCP - General 07/10/16 Josse Fields MD PCP - General 03/24/13 07/09/16 documented as of this encounter
--- OUTSIDE RECORDS SUMMARY | 2024-12-26 08:47 | XMS_ITS | Clinical Summary ---
Author Organization [facility] [address] [facility] Address [address] [place] [address] Care Team Providers Care Commercial Service Technician Name Role Phone Josse Fields MD Primary Care Prov ider Allergies No known active allergies Medications multivitamin tabletIndicatio ns:Vitamin Deficiency Prevention Take 1 tablet by mouth Active rivaroxaban (Xarelto) 20 mg tablet TAKE 1 TABLET BY MOUTH EVERY DAY 30 tablet 11 5 Active atorvastatin (LIPITOR) 40 mg tablet TAKE 1 TABLET(40 MG) BY MOUTH DAILY 90 tablet 3 5 Active flecainide (TAMBOCOR) 100 mg tablet TAKE 1 TABLET(100 MG) BY MOUTH EVERY 12 HOURS 180 tablet 3 5 Active flecainide (TAMBOCOR) 100 mg tablet TAKE 1 TABLET(100 MG) BY MOUTH EVERY 12 HOURS 180 tablet 3 4 12/23/19 25 Discontinued Active Problems Problem Noted Date Diagnosed Date Coronary artery disease invo lving [place] coronary artery of [place] heart without angina pectoris 10/05/2024 Recurrent chest pain 03/28/2024 Flushing 02/03/2023 Encounter for monitoring flecainide therapy 12/12 Dizziness 06/23/2019 Sinus bradycardia 12/23/2018 Chest tightness 05/20/2018 Right carotid 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 0 05/15/2016 Overview (07/16/2016): Chronic anticoagulation Paroxysmal atrial fibrillation 05/15/2016 Overview (07/17/2016): Paroxysmal atrial fibrillation Hyperlipidemia LDL goal <70 05/15/2016 Overview (07/17/2016): Hyperlipidemia LDL goal <100 Encounters Date Type Department Care Team Description 10/05/2024 8:30 AM CDT Office Visit [facility] Cardiology [address] [place] [address] Zack Reyes MD Hyperlipidemia LDL goal <70 (Primary Dx); Paroxysmal atrial fibrillation (HCC); Encounter for monitoring flecainide therapy; Sinus bradycardia; prison current use of anticoagulant therapy; Coronary artery disease involving [place] coronary artery of [place] heart without angina pectoris from Last 3 Months Surgical History Surgery Date Site/Laterality Comments ROTATOR CUFF REPAIR R Rotator cuff repair OTHER SURGICAL HISTORY Left arthroscopic knee surgery OTHER SURGICAL HISTORY Right Achilles tendon rupture repair Medical History Medical History Date Comments Atrial fibrillation (HCC) Atrial fibrillation Hx Other Medical Dyslipidemia Family History Medical History Relation Name Comments Heart attack Mother's Brother 2 Myocardia l Infarction; Cause of : Myocardial Infarction Relation Name Status Comments Mother's Brother 1 Mother's Brother 2 Social History Tobacco Use Types Packs/Day Years Used Date Smoking Tobacco: Never Smokeless Tobacco: Never Tobacco Cessation:Counseling Given: Not Answered Alcohol Use Standard Drinks/Week Comments Yes 12 (1 standard drink = 0.6 oz pu re alcohol) Sex and Gender Information Value Date Recorded Sex Assigned at Not on file Legal Sex Male 1:58 AM NEUROSCIENCE SPECIALIST Gender Identity Not on file Sexual Orientation Not on file Obstetrics History Last Filed Vital Signs Vital Sign Reading Time Taken Comments Blood Pressure 132/70 10/05/2024 8:18 AM CDT Pulse 58 10/05/2024 8:18 AM CDT Temperature - - Respiratory Rate 10 04/27/2024 1:10 PM NEUROSCIENCE SPECIALIST Oxygen Saturation 96% 10/05/2024 8:18 AM CDT Inhaled Oxygen Concentration - - Weight 90.3 kg (199 lb) 10/05/2024 8:18 AM CDT Height 172.7 cm (5' 8) 10/05/2024 8:18 AM CDT Body Mass Index 30.26 10/05/2024 8:18 AM CDT Plan of Treatment Health Maintenance Due Date Last Done Comments Colon Cancer Screening-Colonoscopy 1957 Depression Screening 1957 Fall Risk Assessment 1957 Hepatitis C Screening 1957 Prostate Cancer Screening-PSA 1957 DTaP/Tdap/Td Vaccine (1 - Tdap) 1968 Hepatitis B Screening 07/02/1975 Pneumococcal vaccine 65+ (1 of 1 - PCV) 07/02/2007 Zoster Vaccine (1 of 2) 07/02/2007 Well Visit 65+ 2022 Influenza Vaccine (#1) 2024 Procedures Procedure Name Priority Date/Time Associated Diagnosis Comments POCT LIPID PANEL Routine 10/05/2024 8:20 AM CDT Hyperlipidemia LDL goal <70 from Last 3 Months Results * (ABNORMAL) POCT lipid panel (10/05/2024 8:20 AM CDT) Cholesterol, POC 160 <200 MG/DL HDL, POC 51 >=40 mg/dL Triglycerides, POC 223(A) <=149 mg/dL LDL Cholesterol POC 65 <=129 mg/dL Chol/HDL Ratio, POC 1.3 NONE Non-HDL Cholesterol, POC 109 NONE mg/dL Cholesterol Total, POC 160 30 - 199 mg/dL Capillary blood 10/05/2024 8 :20 AM CDT Zack Reyes MD POINT OF CARE TEST ORDERA BLES Final Result from Last 3 Months Insurance [employer] [facility] MEDICARE ADVANTAGE [facility] MEDICARE Address: [place] [id number] [facility] MEDICARE Address: [place] [address] [facility] MEDICARE Address: [place] [id number] Care Teams Commercial Service Technician Relationship Specialty Start Date End Date Josse Fields MD [facility] - General 07/10/16
== END 2024-12-26 08:01 | disposition home or self-care (01) ==
PROVIDERS: PCP Family Medicine Adolescent Medicine; Visit Provider Nurse Practitioner
DX: R10.9 Unspecified abdominal pain (principal)
CPT/HCPCS: 76700

== ENCOUNTER 2025-01-05 10:08 | Outpatient (CLI) | payer MEDICARE, SELFPAY ==
--- NOTE | ~2025-01-05 | CT_ITS ---
EXAMINATION: CT abdomen pelvis wo/w con DATE: 01/05/2025 11:11 INDICATION: Unspecified hydronephrosis. TECHNIQUE: Computed tomography (CT) of the abdomen and pelvis was performed without and with intravenous contrast using a total of 130 mL Omnipaque-350 intravenous contrast with a double-bolus technique for simultaneous opacification of the renal parenchyma and renal collecting system. Automated exposure control and iterative reconstruction technique were employed. The dose- length product was 1891.86 mGy-cm. COMPARISON: CT abdomen and pelvis 02/16/2011, ultrasound abdomen 12/26/2024 FINDINGS: The visualized portions of the lung bases demonstrate mild atelectasis. No pleural effusion. The heart size is normal. No pericardial effusion. The liver, spleen, gallbladder, pancreas, and adrenal glands are normal. There is a 9 mm cyst in right kidney. There is a 5 mm stone in right kidney. The right ureter is well opacified and is normal. There is a 7.5 x 6.3 cm enhancing mass in left kidney. There is severe left hydronephrosis. The left ureter is not opacified by contrast. The bladder is normal. The prostate is mildly enlarged. There is diverticulosis of the colon without evidence of diverticulitis. The appendix is normal. There are no dilated loops of bowel. There are no pathologically enlarge d lymph nodes. There is no free intraperitoneal fluid. There is severe thoracic and lumbar spondylosis. IMPRESSION: 1. 7.5 cm enhancing mass in left kidney, consistent with renal cell carcinoma versus urothelial carcinoma. Severe left hydronephrosis. Reviewed, dictated and finalized at location E. IMPRESSION: 1. 7.5 cm enhancing mass in left kidney, consistent with renal cell carcinoma v ersus urothelial carcinoma. Severe left hydronephrosis.
[2025-01-05 10:33] LABS: Estimated Glomerular Filt Rate 40
== END 2025-01-05 10:09 | disposition home or self-care (01) ==
LOC: MICIMG 10:09
PROVIDERS: PCP Family Medicine Adolescent Medicine; Visit Provider Family Medicine Adolescent Medicine
DX: N28.89 Other specified disorders of kidney and ureter (principal); N13.30 Unspecified hydronephrosis
CPT/HCPCS: 74178; Q9967

== ENCOUNTER 2025-03-07 08:28 | Outpatient (CLI) | payer MEDICARE, SELFPAY ==
--- NOTE | ~2025-03-07 | XR_ITS ---
XR thoracic spine 2V Indication: RT SIDE TSPINE PAIN INTO RT SHOULDER RT SIDE OF NECK Comparison: None Findings: Moderate loss of vertebral height throughout, no acute fracture or subluxation. Moderate to severe loss of disc height throughout. Soft tissues unremarkable Impression: No acute abnormality. Reviewed, dictated and finalized at location P. 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
--- NOTE | ~2025-03-07 | XR_ITS ---
EXAMINATION: XR shoulder RT min 2V, 03/07/2025 8:35 EVENT MARKETING ASSISTANT HISTORY: RT POSTERIOR SHOULDER BLADE PAIN INTO NECK T-SPINE COMPARISON: No comparisons available. Findings: No acute fracture or malalignment. Moderate degenerative changes Soft tissues unremarkable. Impression: No acute fracture or malalignment. Reviewed, dictated and finalized at location P. T MARKETING ASSISTANT Impression: No acute fracture or malalignment.
--- NOTE | ~2025-03-07 | XR_ITS ---
XR_[id number]_CR 03/07/2025 08:57 Indication: Cervicalgia Procedure: 3 views cervical spine Comparison: 01/06/2008 Findings: Normal cervical alignment. There is disc narrowing and endplate degenerative change at all cervical spine levels. There is mild multilevel uncinate and facet hypertrophy. Mild levocurvature of the cervical spine. Lung apices are normal. Odontoid process is normal. Lateral masses normally aligned. Impression: 1: Moderate cervical spondylosis. Reviewed, dictated and finalized at location P. CE LEAD Impression: 1: Moderate cervical spondylosis.
== END 2025-03-07 08:29 | disposition home or self-care (01) ==
PROVIDERS: PCP Family Medicine Adolescent Medicine; Visit Provider Nurse Practitioner
DX: M47.812 Spondylosis without myelopathy or radiculopathy, cervical region (principal); M19.011 Primary osteoarthritis, right shoulder; M54.9 Dorsalgia, unspecified
CPT/HCPCS: 72040; 72070; 73030